=== PATIENT | male | born 1945 | race Hispanic/Latino ===

== ENCOUNTER 2017-09-26 13:24 | Emergency (ER) | payer MEDICARE, BC ==
--- NOTE | 2017-09-26 14:39 | ED PDOC ---
HPI: Male Pain Time Seen by Provider: 09/26/17 14:18 Chief Complaint (Nursing): Male Genitourinary Chief Complaint (Provider): difficulty urinating History Per: Patient History/Exam Limitations: no limitations Onset/Duration Of Symptoms: Days, Worse Since (sunday09/23/17) Current Symptoms Are (Timing): Constant Severity: Severe Pain Scale Rating Of: 10 Quality Of Discomfort: Pressure Associated Symptoms: denies: Fever, Chills, Nausea, Vomiting Alleviating Factors: Other (standing up, walking around) Additional Complaint(s): 71 yr old M with no significant PMHx presents to ED with complaint of difficulty urinating since ambulatory charles catheter removal at Dr. Juarez's office on sunday09/23/17. Patient reports he had left inguinal hernia [address] Juarez, he was not able to urinate after the procedure and was discharged with a charles catheter which remained in place for about 1.5 weeks with normal urine output. Patient was treated with Ciprofloxacin 5 days, Flomax for a week. Patient reports he has only been able to urinate minimal amounts since sunday (approximately 70 oz in total) and only a few dribbles of urine at a time. Associated symptoms are significant abdominal distention, 10/ 10 pressure like pain abdominal pelvic pain. He has decreased his fluid intake due to his symptoms. PMD: Dr. Brown Specialists: Dr. Juarez -surgery PMHx: none SurgHx: left inguinal hernia repair 2 wks ago, right inguinal hernia repair 2015 , varicocele removal at age 9yrs FMHx: non-contributory SocHx: denies tobacco/Etoh or drugs Medications: Flomax x 1 week, finished 5 day course of Ciprofloxacin 1 week ago Allergies: NKDA Past Medical History Vital Signs: Last Vital Signs Temp 98.0 F 09/26/17 13:38 Pulse 88 09/26/17 13:38 Resp 16 09/26/17 13:38 BP 203/99 H 09/26/17 13:38 Pulse Ox 97 09/26/17 13:38 - Medical History PMH: No Chronic Diseases - Family History Family History: States: Unknown Family Hx - Home Medications Home Medications: Ambulatory Orders Medication Instructions Recorded Ciprofloxacin HCl [Cipro] 500 mg PO BID #20 tab 09/26/17 - Allergies Allergies/Adverse Reactions: Allergies Allergy/AdvReac Type Severity Reaction Status Date / Time No Known Allergies Allergy Verified 09/26/17 13:38 Review of Systems Constitutional: Negative for: Fever, Chills, Weakness Eyes: Negative for: Vision Change ENT: Negative for: Throat Pain Cardiovascular: Negative for: Chest Pain, Palpitations, Edema, Light Headedness Respiratory: Negative for: Cough, Shortness of Breath Gastrointestinal: Positive for: Abdominal Pain, Other (abominal distention). Negative for: Nausea, Vomiting Genitourinary Male: Positive for: Other (urinary retention). Negative for: Dysuria Musculoskeletal: Negative for: Neck Pain, Shoulder Pain Skin: Negative for: Rash, Lesions Neurological: Negative for: Weakness, Confusion Psych: Negative for: Anxiety Physical Exam - Physical Exam Appears: Positive for: Uncomfortable Head Exam: Positive for: ATRAUMATIC, NORMOCEPHALIC Skin: Positive for: Normal Color, Warm, Dry Eye Exam: Positive for: EOMI, PERRL Neck: Positive for: Painless ROM, Supple Cardiovascular/Chest: Positive for: Regular Rate, Rhythm. Negative for: Gallop , Murmur, Friction Rub Respiratory: Positive for: Normal Breath Sounds. Negative for: Rales, Rhonchi Pulses-Carotid (L): 2+ Pulses-Carotid (R): 2+ Pulses-Dorsalis Pedis (L): 2+ Pulses-Dorsalis Pedis (R): 2+ Pulses-Femoral (L): 2+ Pulses-Femoral (R): 2+ Pulses-Post. Tibialis (L): 2+ Pulses-Post. Tibialis (R): 2+ Pulses-Radial (L): 2+ Pulses-Radial (R): 2+ Gastrointestinal/Abdominal: Positive for: Bowel Sounds (distant), Tenderness, Distended (significant distention) Male Genital Exam: Positive for: normal genitalia. Negative for: no hernia, inguinal tenderness, scrotum tenderness (R), scrotum tenderness (L), urethral discharge Back: Negative for: L CVA Tenderness, R CVA Tenderness Extremity: Positive for: Normal ROM. 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 Brown on sunday10/01/17) Counseled Patient/Family Regarding: Need For Followup, Rx Given - Disposition Referrals: Cody Brown MD [Family Provider] - Disposition: Routine/Home Disposition Time: 17:35 Condition: IMPROVED Additional Instructions: follow up with Dr Brown on Sunday return to the ED with any worsening or concerning symptoms continue taking flomax also take the antibiotics Prescriptions: Ciprofloxacin HCl [Cipro] 500 mg PO BID #20 tab Instructions: Urinary Retention (DC) Forms: Anytime DD (Korean)
[2017-09-26 15:13] VITALS: RESP 18
[2017-09-26 15:41] LABS: URINE BACTERIA OCC (<OCC); URINE BILIRUBIN NEGATIVE (NEGATIVE); URINE BLOOD LARGE (NEGATIVE); URINE CLARITY SLIGHTY-CLOUDY (Clear); URINE COLOR AMBER (YELLOW); URINE GLUCOSE (UA) NEG (Normal); URINE LEUKOCYTE ESTERASE NEG Leu/uL (Negative); URINE PROTEIN 100 mg/dL (NEGATIVE); URINE UROBILINOGEN 0.2-1.0 mg/dL (0.2-1.0)
[2017-09-26 16:03] LABS: BASO % 0.2 % (0.0-2.0); EOS # 0.2 K/uL (0.0-0.7); HEMOGLOBIN 15.1 g/dL (12.0-18.0); LYMPH # 1.5 K/uL (1.0-4.3); LYMPH % 8.5 % (20.0-40.0); MEAN CELL VOLUME 93.5 fl (80.0-94.0); MEAN CORPUSCULAR HEMOGLOBIN 31.4 pg (27.0-31.0); MEAN CORPUSCULAR HGB CONC 33.6 g/dL (33.0-37.0); MEAN PLATELET VOLUME 8.8 fl (7.2-11.7); MONO # 1.2 K/uL (0.0-0.8); MONO % 6.8 % (0.0-10.0); NEUT % 83.5 % (50.0-75.0); PLATELET COUNT 243 K/uL (130-400); RED CELL DISTRIBUTION WIDTH 13.1 % (11.5-14.5)
[2017-09-26 16:15] LABS: ALB/GLOB RATIO 1.3 (1.0-2.1); ALBUMIN 4.1 g/dL (3.5-5.0); ALT/SGPT 44 U/L (21-72); AST/SGOT 27 U/L (17-59); BLOOD UREA NITROGEN 11 mg/dl (9-20); CALCIUM 9.6 mg/dL (8.4-10.2); GFR AFRICAN-AMERICAN > 60; GFR NON-AFRICAN AMERICAN > 60
[2017-09-26 17:39] LABS: BASOPHIL 1 % (0-2); EOSINOPHIL 1 % (0-7); LYMPHOCYTE 9 % (20-50); MONOCYTE 5 % (0-10); NEUTROPHIL 83 % (42-75); PLATELET ESTIMATE NORMAL (NORMAL); REACTIVE LYMPHOCYTES 1 % (0-0); TOTAL CELLS COUNTED 100
[2017-09-26 17:41] VITALS: BP 131/90; PULSE 95; TEMP 98; O2SAT 98
== END 2017-09-26 17:42 | disposition home or self-care (01) ==
LOC: H.ER 13:24
DX: R33.9 Retention of urine, unspecified (principal)

== ENCOUNTER 2017-10-15 06:20 | Day surgery (SDC) | payer MEDICARE, BC ==
[2017-10-10 13:33] VITALS: BMI 23.6
[2017-10-15] MEDS ORDERED: cefTRIAXone (Rocephin) 1 gm Inj ONE (07:24)
[2017-10-15] MEDS ORDERED: Propofol 10 mg/ml Inj (20 ML) ONE (07:25)
[2017-10-15] MEDS ORDERED: Etomidate 20 mg/10ml Inj IV ONE (07:29)
[2017-10-15] MEDS ORDERED: Phenylephrine 10 mg/ml Inj ONE (07:30)
[2017-10-15] MEDS ORDERED: Succinylcholine 200 mg/10 ml Inj IV ONE (07:30)
[2017-10-15] MEDS ORDERED: Lidocaine 2% Jelly (5 ml) TOP ONE ×2 (07:37→09:51)
[2017-10-15] MEDS ORDERED: Lactated Ringer's 1,000 ML IV ONE (07:45)
--- NOTE | 2017-10-15 07:52 | CARD ---
APPROVED REPORT EKG Measurement Heart [id number] <Conclusion> Normal sinus rhythm Left axis deviation Moderate voltage criteria for LVH, may be normal variant Abnormal ECG
[2017-10-15] MEDS ORDERED: ePHEDrine 50 mg/ml Inj ONE (08:21)
[2017-10-15] MEDS ORDERED: Sevoflurane - Inhalation Anesthetic Liq (250 ml) ONE (08:25)
[2017-10-15] MEDS ORDERED: Esmolol 100 mg/10ml Inj IV ONE (08:39)
[2017-10-15] MEDS ORDERED: HYDROmorphone 0.5 mg/0.5 ml ISec IVP PRN (09:35)
[2017-10-15] MEDS ORDERED: SODIUM CHLORIDE 3,000 ML IR ONE ×2 (09:36)
[2017-10-15] MEDS ORDERED: Labetalol 5 mg/ml Inj 20ML IVP ONE (10:37)
[2017-10-15 11:40] VITALS: RESP 18
[2017-10-15 14:14] VITALS: BP 150/73; PULSE 66; TEMP 98.3; O2SAT 99
--- NOTE | 2017-10-15 20:11 | OP ---
PROCEDURE DATE: 10/15/2017 PREOPERATIVE DIAGNOSIS: Urinary retention secondary to benign prostatic hypertrophy. POSTOPERATIVE DIAGNOSIS: Urinary retention secondary to benign prostatic hypertrophy. PROCEDURE PERFORMED: GreenLight laser of the prostate. DESCRIPTION OF PROCEDURE: The patient was placed in the operating room table in a dorsal lithotomy position. Given general anesthesia. The area of the groin was draped and prepped in a sterile manner. Using a laser scope, I entered into the bladder atraumatically and under direct vision,prostate was rather large with the significant middle lobe. At this time, we had also observations of 3 to 4+ bladder wall trabeculation. Ureteral orifices at the beginning were not able to be seen because of the obstructing middle lobe. I then used laser fiber to demarcate the distal portion of the resection and then began to resect first in the middle lobe, followed by the left and right lateral lobes. Once the middle lobe was taken down, I was able then see ureteral orifices and they were well preserved throughout the case. Blood loss during the procedure was probably less than 20 mL. At the end of the procedure, there was a wide opening from the verumontanum, which identified to be circumferentially intact. Ureteral orifices at the end were re-identified. A #22 three-way Bobo catheter was inserted, used the total of about 460,000 joules of energy to nucleate the adenoma and the initially urine outflow was clear. The patient was taken from the operating room in good condition. Cody Brown MD
== END 2017-10-15 14:35 | disposition home or self-care (01) ==
LOC: H.OPSURG 06:20
PROVIDERS: ATTEND Urology
DX: N40.1 Benign prostatic hyperplasia with lower urinary tract symptoms (principal); R33.8 Other retention of urine
CPT/HCPCS: 52648; 93005; J0330; J0360; J0696; J1170; J2001; J2370; J2704; J2765; J3010; J7030; J7120